=== PATIENT | female | born 1960 ===

== ENCOUNTER 2017-05-24 16:08 | Emergency (ER) | payer OTHER ==
--- NOTE | 2017-05-24 16:38 | ED PDOC ---
HPI: Abdomen Time Seen by Provider: 05/24/17 16:36 Chief Complaint (Nursing): GI Problem Chief Complaint (Provider): abdominal pain History Per: Patient, Family Onset/Duration Of Symptoms: Days (2), Intermittent Episodes Context: Food Location Of Pain/Discomfort: Epigastric Quality Of Discomfort: "Pain" Associated Symptoms: Fever (subjective), Chills, Nausea, Loss Of Appetite. denies: Vomiting, Diarrhea, Constipation, Urinary Symptoms Exacerbating Factors: Food Alleviating Factors: None Additional Complaint(s): Also reports dizziness, mild headache, and elevated BP. PMD: KENA Castaneda Past Medical History Reviewed: Historical Data, Nursing Documentation, Vital Signs Vital Signs: Last Vital Signs Temp Pulse 70 05/24/17 16:21 Resp 18 05/24/17 16:21 BP 125/75 05/24/17 16:21 Pulse Ox 100 05/24/17 16:21 - Medical History PMH: HTN - Surgical History Surgical History: No Surg Hx - Family History Family History: States: No Known Family Hx - Social History Current smoker - smoking cessation education provided: No - Allergies Allergies/Adverse Reactions: Allergies Allergy/AdvReac Type Severity Reaction Status Date / Time No Known Allergies Allergy Verified 05/24/17 16:21 Review of Systems ROS Statement: Except As Marked, All Systems Reviewed And Found Negative (and as per HPI) Constitutional: Positive for: Fever, Chills, Weakness Eyes: Positive for: Other (chronic blurry vision) - ECG O2 Sat by Pulse Oximetry: 100 Disposition - Disposition
[2017-05-24] MEDS ORDERED: Sodium Chloride 0.9% 500 ML IV STA (17:17)
--- NOTE | 2017-05-24 17:30 | ED PDOC ---
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 (#[id number])) - History of Present Illness Time/Duration: 4-6 hours Symptom Onset: Sudden Symptom Course: Unchanged Quality: Other (Dizziness) Severity Level: Severe Activities at Onset: Light Context: Standing, Walking, Other (with movement of head and activity ) <Dorothea Saenz - Last Filed: 05/24/17 19:05> <Ingrid Greer - Last Filed: 05/25/17 00:28> - General Chief Complaint: Dizziness/Lightheaded Time Seen by Provider: 05/24/17 16:36 - History of Present Illness Narrative History of Present Illness (Text): 05/24/17 17:31 57 YO Female with PMH of HTN presents to [facility] ED for dizziness. Dizziness started around 10 AM this morning when pt was at work, started all of a sudden. She describes the dizziness as the room is spinning around patient, not the patient moving around. Pt woke up this morning, made her breakfast without any difficulties or symptoms. 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 Patient was helped onto a chair and sat for 20 mins before she tried to get up again but the dizziness persisted. After pt got home she started throwing up in intervals where she moved her head or tried to move around. Total of 7 episodes of emesis , food and clear fluids, no blood noted. Additionally, patient also endorses some L sided weakness/pain. Per patient this is the first time she has had these symptoms. No changes in speech, facial droop, LOC, and no hx of trauma. Denies visual changes, hearing problems, pressure feeling in ears, and tinnitus. Pt wears vision correcting glasses. Of note, daughter is present by bedside. [employer] was used #[id number]. (Dorothea Saenz) Associated Symptoms (Text): Associated with nausea and 7x episodes of emesis since onset of symptoms. 05/24/17 17:30 (Dorothea aSenz) Past Medical History - Travel History Have you recently traveled outside [place] w/in the past 3 mons?: No - Past History Past History: Non-Contributing - Reproductive Menopause: Yes - Cardiac Hx Hypertension: Yes - Psychiatric Hx Substance Use: No <Dorothea Saenz - Last Filed: 05/24/17 19:05> <Ingrid Greer - Last Filed: 05/25/17 00:28> - Patient History Narrative Patient History: Patient has PMH of HTN. (Dorothea Saenz) Family/Social History Family/Social History: Hypertension Smoking Status: Never Smoked Hx Alcohol Use: No Hx Substance Use: No <Dorothea Saenz - Last Filed: 05/24/17 19:05> Allergies/Home Meds <Dorothea Saenz - Last Filed: 05/24/17 19:05> <Ingrid Greer - Last Filed: 05/25/17 00:28> Allergies/Adverse Reactions: Allergies No Known Allergies Allergy (Verified 05/24/17 16:21) Review of Systems - Review of Systems Constitutional: Normal Eyes: Normal ENT: Normal Respiratory: Normal Cardiovascular: Normal Gastrointestinal: Nausea, Vomiting Genitourinary Female: Normal Musculoskeletal: Normal Skin: Normal Neurological: Dizziness Endocrine: Normal Hemo/Lymphatic: Normal Psychiatric: Normal <Dorothea Saenz - Last Filed: 05/24/17 19:05> Physical Exam Temperature: Afebrile Blood Pressure: Normal Pulse: Regular Respiratory Rate: Normal Appearance: Positive for: Well-Appearing, Non-Toxic, Comfortable Pain Distress: None Mental Status: Positive for: Alert and Oriented X 3 - Systems Exam Head: Present: Atraumatic, Normocephalic Pupils: Present: PERRL, Other (Horizontal nystagmus noted, going to the Left ) Extroacular Muscles: Present: EOMI Conjunctiva: Present: Normal Mouth: Present: Moist Mucous Membranes, Other (no deviation of the palate or the glossal. ) Neck: Present: Normal Range of Motion Respiratory/Chest: Present: Clear to Auscultation, Good Air Exchange. No: Respiratory Distress, Accessory Muscle Use Cardiovascular: Present: Regular Rate and Rhythm, Normal S1, S2. No: Murmurs Abdomen: Present: Normal Bowel Sounds. No: Tenderness, Distention, Peritoneal Signs Upper Extremity: Present: Normal Inspection, Other (no dysmetria and no dysdiadochokinesia, No pronator drift noted). No: Cyanosis, Edema Lower Extremity: Present: Normal Inspection. No: Edema Neurological: Present: GCS=15, CN II-XII Intact, Speech Normal, Normal Cerebellar Funct, Other (Unable to illicit emmanuel hallpike, pt not able to tolerate ) Skin: Present: Warm, Dry, Normal Color. No: Rashes Psychiatric: Present: Alert, Oriented x 3, Normal Insight, Normal Concentration <Dorothea Saenz - Last Filed: 05/24/17 19:05> Vital Signs Pulse Resp BP Pulse Ox 05/24/17 19:38 63 16 119/63 97 05/24/17 19:31 100 05/24/17 16:21 70 18 125/75 100 Medical Decision Making - Transfer of Care Patient signed out to Dr:: Alyson Greer Pending Labs:: Pending labs <Dorothea Saenz - Last Filed: 05/24/17 19:05> <Ingrid Greer - Last Filed: 05/25/17 00:28> ED Course and Treatment: Pt has dizziness and nausea/vomiting likely secondary to Vertigo. NIH scale 0 Pt was assessed and bloodwork and imaging was ordered. Pt was started on IVF and given PO Zofran and Meclizine for dizziness and nausea /vomiting. Ct head was ordered along with ekg. Pt was reevaluated and states that she feels better at this time. She is able to move her head, pt was encouraged to walk around when able. Ct head was appreciated, no acute hemorrhage. Cystic formation noted in R parietal lobe, may represent dilated perivascular space. EKG, interpreted by me. Normal sinus rhythm with rate of 67 bpm. CMP wnl (Dorothea Saenz) - Lab Interpretations Lab Results: 05/24/17 17:55 05/24/17 17:55 Lab Results 05/24/17 19:00: PT 11.5, INR 1.1, APTT 31.4 05/24/17 17:55: Sodium 142, Potassium 3.6, Chloride 102, Carbon Dioxide 23, Anion Gap 21 H, BUN 16, Creatinine 0.7, Est GFR ( Amer) > 60, Est GFR ( Non-Af Amer) > 60, Random Glucose 121 H, Calcium 9.4, Phosphorus 4.1, Magnesium 1.9, Total Bilirubin 0.4, AST 37 H, ALT 43, Alkaline Phosphatase 103, Total Protein 7.7, Albumin 4.7, Globulin 3.0, Albumin/Globulin Ratio 1.6 05/24/17 17:55: WBC 10.1, RBC 4.53, Hgb 13.4, Hct 40.3, MCV 89.1, MCH 29.7, MCHC 33.3, RDW 13.6, Plt Count 300, MPV 8.5, Neut % (Auto) 85.1 H, Lymph % (Auto ) 12.3 L, P[place] % (Auto) 2.3, Eos % (Auto) 0.0, Baso % (Auto) 0.3, Neut # 8.6 H, Lymph # 1.2, Pinal # 0.2, Eos # 0.0, Baso # 0.0 - RAD Interpretation Radiology Orders: 05/24/17 17:16 HEAD W/O CONTRAST [CT] Stat - Medication Orders Current Medication Orders: Discontinued Medications Sodium Chloride (Sodium Chloride 0.9%) 500 mls @ 500 mls/hr IV .Q1H STA Stop: 05/24/17 18:16 Last Admin: 05/24/17 18:01 Dose: 500 mls/hr eMAR Start Stop Document 05/24/17 18:01 (Rec: 05/24/17 18:02 [email or web address]) Intravenous Solution Start Date 05/24/17 Start Time 18:01 Meclizine HCl (Antivert) 50 mg PO STAT STA Stop: 05/24/17 17:18 Last Admin: 05/24/17 17:59 Dose: 50 mg Ondansetron HCl (Zofran Inj) 4 mg IVP ONCE ONE Stop: 05/24/17 17:18 Last Admin: 05/24/17 18:00 Dose: 4 mg IVP Administration Document 05/24/17 18:00 (Rec: 05/24/17 18:00 [email or web address]) Charges for Administration # of IVP Administrations 1 Disposition/Present on Arrival - Present on Arrival Any Indicators Present on Arrival: Yes - Disposition Have Diagnosis and Disposition been Completed?: Yes Disposition Time: 19:08 Patient Plan: Transfer To <Dorothea Saenz - Last Filed: 05/24/17 19:05> <Ingrid Greer - Last Filed: 05/25/17 00:28> - Disposition Diagnosis: Vertigo Disposition: HOME/ ROUTINE Condition: IMPROVED Discharge Instructions (ExitCare): Vertigo (ED) Print Language: LITHUANIAN Additional Instructions: Follow up with PMD at [facility] in 2-3 days Come back to ED if symptoms persists or worsen Prescriptions: Meclizine HCl 50 mg PO BID PRN #30 tablet PRN Reason: Dizziness Ondansetron ODT [Zofran ODT] 1 odt PO Q6 PRN #20 odt PRN Reason: Nausea/Vomiting Referrals: [facility] [Outside] Forms: [facility] (Vincentian) Supervising Attending Note - Supervising Attending Note The Documented history was done by the: Physician Buckle Sorter, Attending Physician The documented physical exam was done by the: Physician Buckle Sorter, Attending Physician - Attestation: I have personally seen and examined this patient.: Yes I have fully participated in the care of the patient.: Yes I have reviewed all pertinent clinical information, including history, physical exam and plan: Yes <Ingrid Greer - Last Filed: 05/25/17 00:28>
--- NOTE | 2017-05-24 18:18 | CT ---
PROCEDURE: CT HEAD WITHOUT CONTRAST. HISTORY: dizziness COMPARISON: None available. TECHNIQUE: Axial computed tomography images were obtained through the head/brain without intravenous contrast. Radiation dose: Total exam DLP = 824.56 mGy-cm. This CT exam was performed using one or more of the following dose reduction techniques: Automated exposure control, adjustment of the mA and/or kV according to patient size, and/or use of iterative reconstruction technique. FINDINGS: HEMORRHAGE: No intracranial hemorrhage. BRAIN: There is well defined small low-attenuation likely cystic structure at the right parietal lobe image 30 series 4 measures 5.6 millimeter may represent dilated perivascular space. No evidence of mass effect or midline shift. Mild atrophy and volume loss is noted. VENTRICLES: Unremarkable. No hydrocephalus. CALVARIUM: Unremarkable. PARANASAL SINUSES: Unremarkable as visualized. No significant inflammatory changes. MASTOID AIR CELLS: Unremarkable as visualized. No inflammatory changes. OTHER FINDINGS: None. IMPRESSION: No evidence of acute intracranial hemorrhage territorial infarct mass effect or midline shift. Mild volume loss. Small cystic formation seen at the right parietal lobe may represent dilated perivascular space.
[2017-05-24 18:23] LABS: BASO % 0.3 % (0.0-2.0); HEMATOCRIT 40.3 % (34.0-47.0); LYMPH # 1.2 K/uL (1.0-4.3); LYMPH % 12.3 % (20.0-40.0); MEAN CELL VOLUME 89.1 fl (81.0-99.0); MEAN CORPUSCULAR HEMOGLOBIN 29.7 pg (27.0-31.0); MEAN CORPUSCULAR HGB CONC 33.3 g/dL (33.0-37.0); MEAN PLATELET VOLUME 8.5 fl (7.2-11.7); MONO # 0.2 K/uL (0.0-0.8); MONO % 2.3 % (0.0-10.0); NEUT # 8.6 K/uL (1.8-7.0); NEUT % 85.1 % (50.0-75.0); RED CELL DISTRIBUTION WIDTH 13.6 % (11.5-14.5); WHITE BLOOD COUNT 10.1 K/uL (4.8-10.8)
[2017-05-24 18:30] LABS: ALB/GLOB RATIO 1.6 (1.0-2.1); ALKALINE PHOSPHATASE 103 U/L (38-126); ALT/SGPT 43 U/L (9-52); AST/SGOT 37 U/L (14-36); BILIRUBIN,TOTAL 0.4 mg/dl (0.2-1.3); BLOOD UREA NITROGEN 16 mg/dl (7-17); CALCIUM 9.4 mg/dL (8.4-10.2); CARBON DIOXIDE 23 mmol/L (22-30); CHLORIDE 102 mmol/L (98-107); GFR AFRICAN-AMERICAN > 60; GLUCOSE,RANDOM 121 mg/dL (65-105); MAGNESIUM 1.9 MG/DL (1.6-2.3); PHOSPHOROUS 4.1 mg/dl (2.5-4.5); POTASSIUM 3.6 MMOL/L (3.6-5.0); SODIUM 142 mmol/l (132-148); TOTAL PROTEIN 7.7 G/DL (6.3-8.2)
[2017-05-24 19:13] LABS: PARTIAL THROMBOPLASTIN TIME 31.4 Seconds (25.6-37.1)
--- NOTE | 2017-05-24 19:31 | ED PDOC ---
- Laboratory Results Result Diagrams: 05/24/17 17:55 05/24/17 17:55 - ECG O2 Sat by Pulse Oximetry: 100 - Progress ED Course And Treament: 7p Pt pending CT and udip. No acute findings on CT. Pt feeling better. DC home Condition: Improved Disposition - Clinical Impression Clinical Impression: Vertigo - POA Present On Arrival: None - Disposition Referrals: [facility] [Outside] Disposition: Routine/Home Disposition Time: 19:00 Condition: IMPROVED Additional Instructions: Follow up with PMD at [facility] in 2-3 days Come back to ED if symptoms persists or worsen Prescriptions: Meclizine HCl 50 mg PO BID PRN #30 tablet PRN Reason: Dizziness Ondansetron ODT [Zofran ODT] 1 odt PO Q6 PRN #20 odt PRN Reason: Nausea/Vomiting Instructions: Vertigo (ED) Forms: [facility] (Persian) Print Language: GEORGIAN
[2017-05-24 19:39] VITALS: BP 119/63; PULSE 63; RESP 16
[2017-05-25 00:32] VITALS: O2SAT 100
--- NOTE | 2017-05-26 01:22 | CARD ---
APPROVED REPORT EKG Measurement Heart [id number] <Conclusion> Normal sinus rhythm Normal ECG
== END 2017-05-24 19:40 | disposition home or self-care (01) ==
LOC: H.ER 16:08
DX: R42 Dizziness and giddiness (principal); I10 Essential (primary) hypertension
CPT/HCPCS: 70450; 80053; 83735; 84100; 85025; 85610; 85730; 87086; 96374; 99285; J2405; J7040